=== PATIENT | male | born 1970 | race Native Hawaiian/Other Pacific Islander ===

== ENCOUNTER 2019-02-14 19:13 | Emergency (ER) | payer BC ==
[2019-02-14 19:44] VITALS: TEMP 98
--- NOTE | 2019-02-14 19:48 | ED PDOC ---
Arrival/HPI - General Chief Complaint: Lower Extremity Problem/Injury Time Seen by Provider: 02/14/19 19:43 Historian: Patient - History of Present Illness Narrative History of Present Illness (Text): 02/14/19 19:48 48 year old male, with no significant past medical history, presents to the ED for evaluation of right knee pain since prior to arrival. Patient reports chronic pain to the area with intermittent right knee "popping in and out", which worsened today. Patient denies any other associated somatic complaints. Patient denies any numbness/weakness, difficulty ambulating, leg swelling or any other complaints. Time/Duration: Prior to Arrival Symptom Onset: Gradual Symptom Course: Unchanged Activities at Onset: Light Context: Home Past Medical History - Provider Review Nursing Documentation Reviewed: Yes - Infectious Disease Hx of Infectious Diseases: None - Cardiac Hx Cardiac Disorders: No Hx Angina: No - Pulmonary Hx Respiratory Disorders: No - Psychiatric Hx Substance Use: No - Anesthesia Hx Anesthesia: No Family/Social History - Physician Review Nursing Documentation Reviewed: Yes Family/Social History: Unknown Family HX Smoking Status: Never Smoked Hx Alcohol Use: No Hx Substance Use: No Allergies/Home Meds Allergies/Adverse Reactions: Allergies No Known Allergies Allergy (Verified 02/14/19 19:41) Home Medications: Home Meds Medication Instructions Recorded Confirmed No Known Home Med 02/14/19 02/14/19 Review of Systems - Physician Review All systems were reviewed & negative as marked: Yes - Review of Systems Musculoskeletal: Arthralgias (Right knee pain). absent: Back Pain Neurological: absent: Focal Weakness Physical Exam - Physical Exam Narrative Physical Exam (Text): 02/14/19 19:51 Constitutional: No acute distress. Head: Normocephalic. Atraumatic. Eyes: PERRL. ENT: Moist mucous membranes. Neck: Supple. Cardiovascular: Regular rate. Chest: No tenderness. Respiratory: Clear to auscultation bilaterally. GI: Soft. Nontender. Nondistended. Back: No CVA tenderness. Musculoskeletal: No tenderness or swelling of extremities. DP pulses 2+. Able to actively flex and extend right knee just short of 180 degrees. Skin: No rash. Neurologic: Alert, no focal deficit. Vital Signs Reviewed: Yes Vital Signs Temp Pulse Resp BP Pulse Ox 02/14/19 19:43 98.0 F 68 17 145/83 97 Temperature: Afebrile Blood Pressure: Normal Pulse: Regular Respiratory Rate: Normal Appearance: Positive for: Well-Appearing, Non-Toxic, Comfortable Pain Distress: None Mental Status: Positive for: Alert and Oriented X 3 Medical Decision Making ED Course and Treatment: 02/14/19 19:52 Impression: 48 year old male presents to the ED for evaluation of right knee pain. Plan: -- X-ray of right knee -- Reassess and disposition Prior Visits: Notes and results from previous visits were reviewed. Progress Notes: XR shows no fracture or dislocation. Knee immobilizer and crutches provided with education on their use. Instructed to f/u with Ortho. - Scribe Statement The provider has reviewed the documentation as recorded by the Scribe Heri Galarza All medical record entries made by the Scribe were at my direction and personally dictated by me. I have reviewed the chart and agree that the record accurately reflects my personal performance of the history, physical exam, medical decision making, and the department course for this patient. I have also personally directed, reviewed, and agree with the discharge instructions and disposition. Disposition/Present on Arrival - Present on Arrival Any Indicators Present on Arrival: No History of DVT/PE: No History of Uncontrolled Diabetes: No Urinary Catheter: No History of Decub. Ulcer: No History Surgical Site Infection Following: None - Disposition Have Diagnosis and Disposition been Completed?: Yes Diagnosis: Knee pain Disposition: HOME/ ROUTINE Disposition Time: 21:07 Patient Plan: Discharge Condition: GOOD Discharge Instructions (ExitCare): Knee Pain Referrals: PCP,NO [Primary Care Provider] - Follow up with primary Preston Tirado III, MD [Medical Doctor] - Follow up with primary Forms: [employer] ([place]), WORK NOTE
[2019-02-14 21:12] VITALS: BP 123/79; PULSE 59; RESP 16; O2SAT 96
--- NOTE | 2019-02-15 08:13 | RAD ---
Date of service: 02/14/2019 PROCEDURE: Right Knee Radiographs. HISTORY: knee pain COMPARISON: None. TECHNIQUE: Three views obtained. FINDINGS: BONES: Normal. No fracture. JOINTS: Normal. No osteoarthritis. JOINT EFFUSION: None. OTHER FINDINGS: None. IMPRESSION: Normal radiographs of the right knee.
== END 2019-02-14 21:17 | disposition home or self-care (01) ==
LOC: ED 19:13
DX: M25.561 Pain in right knee (principal)